=== PATIENT | female | born 1970 | race African-American/Black ===

== ENCOUNTER 2021-06-12 18:37 | Inpatient (IN) | payer OTHER, SELFPAY ==
[2021-06-12] VITALS (7 sets, daily range): BP systolic 103–133; BP diastolic 71–75; PULSE 93–112; RESP 15–32; TEMP 36.3–37.9; O2SAT 83–99
--- NOTE | ~2021-06-12 | XR_ITS ---
EXAMINATION: XR chest 1V portable DATE: 06/18/2021 06:04 INDICATION: COVID-19 pneumonia. TECHNIQUE: A single frontal view of the chest was obtained. COMPARISON: Chest single view 06/14/2021, chest CT 06/12/2021 FINDINGS: The patient is rotated to her left. There are airspace opacities throughout the lungs bilat erally. No pleural effusion or pneumothorax. Cardiomegaly is noted. IMPRESSION: 1. Stable diffuse lung disease, consistent with pneumonia. 2. Cardiomegaly. Reviewed, dictated and finalized at location A.
--- NOTE | ~2021-06-12 | XR_ITS ---
EXAMINATION: XR chest 1V portable DATE: 06/12/2021 19:04 INDICATION: Dizziness and weakness. TECHNIQUE: A single frontal view of the chest was obtained. COMPARISON: None. FINDINGS: There are airspace opacities in all lung zones bilaterally with relative sparing of the emeka g apices. No pleural effusion or pneumothorax. Cardiomegaly is noted. IMPRESSION: 1. Diffuse lung disease, consistent with pulmonary edema versus pneumonia. 2. Cardiomegaly. Reviewed, dictated and finalized at location A.
--- NOTE | ~2021-06-12 | XR_ITS ---
EXAMINATION: XR chest 1V portable DATE: 06/14/2021 07:38 INDICATION: COVID positive. Shortness of breath and hypoxia. TECHNIQUE: frontal view of the chest was obtained. COMPARISON: Chest radiograph dated 06/12/2021 FINDINGS: Previously more dense and localized scattered patchy airspace opacities now appear more diffuse and g roundglass like throughout the bilateral mid and lower lung zones. No pleural effusion or pneumothora x. Cardiomegaly. IMPRESSION: 1. Diffuse opacities throughout the bilateral mid and lower lung zones consistent with COVID pneumoni a. 2. Cardiomegaly. Reviewed, dictated and finalized at location A. IMPRESSION: 1. Diffuse opacities throughout the bilateral mid and lower lung zones consiste nt with COVID pneumonia. 2. Cardiomegaly.
--- NOTE | ~2021-06-12 | CT_ITS ---
EXAMINATION: CTA chest PE protocol DATE: 06/12/2021 22:04 INDICATION: Shortness of breath. COVID-19 pneumonia. TECHNIQUE: Computed tomography angiography (CTA) of the chest was performed with 100 mL Omnipaque-350 intravenous contrast timed to evaluate the pulmonary arteries. Coronal maximum intensity projection 3D-reconstructions were created by the technologist. Automated exposure control and iterative reconst ruction technique were employed. The dose-length product was 875.16 mGy-cm. COMPARISON: Chest single view 06/12/2021 FINDINGS: There are patchy groundglass opacities and crazy paving in all lobes. No pleural effusion. Cardiomegaly is noted. No pericardial effusion. There is no pulmonary embolus. There is mild mediasti nal lymphadenopathy, likely reactive. There is mild thoracic spondylosis. There is mild chronic anter ior wedging of T6 vertebral body. IMPRESSION: 1. No pulmonary embolus. 2. Diffuse lung disease, consistent with COVID-19 pneumonia. Reviewed, dictated and finalized at location A.
--- NOTE | 2021-06-12 18:42 | ECG_ITS ---
Measurements Intervals [place] Rate: 103 P: 51 MD: 119 QRS: 3 QRSD: 80 T: 32 QT: 311 QTc: 409 Interpretive Statements SINUS TACHYCARDIA WITH SHORT MD INTERVAL DELAYED PRECORDIAL R/S TRANSITION BASELINE ARTIFACT- I, II, AVR, AVL BORDERLINE ECG Electronically Signed On 06-13-2021 7:00:31 CDT by Shahzad Garcia D.O.
--- NOTE | 2021-06-12 19:14 | ED.SOB ---
HPI - SOB/Dyspnea General Chief Complaint: Shortness of Breath/Dyspnea Stated Complaint: weakness/ dizziness covid + Time Seen by Provider: 06/12/21 19:04 Source: RN notes reviewed History of Present Illness HPI Narrative: Patient presents to emergency department from home via EMS for shortness of breath. Patient states she began to feel ill approximately 1 week ago states that she is had a cough this been nonproductive with progressive feelings of shortness of breath when EMS arrived and the patient was noted to have an O2 saturation in the 70s on room air patient states she has not received her Covid vaccination she denies any chest pain abdominal pain nausea vomiting or any other symptoms Related Data Home Medications Medication Instructions Recorded Confirmed hydrochlorothiazide 25 mg PO DAILY 06/12/21 06/12/21 losartan 50 mg PO DAILY 06/12/21 06/12/21 Allergies Allergy/AdvReac Type Severity Reaction Status Date / Time No Known Allergies Allergy Mild Verified 06/12/21 18:40 Review of Systems Review of Systems: Gen.: Denies fevers or chills ENT: Denies congestion Respiratory: See HPI CV: Denies chest pain or palpitations GI: Denies abdominal pain nausea, emesis or diarrhea Musculoskeletal: Denies back pain or muscle pain Neuro: Denies numbness, tingling, weakness or focal weakness Skin: Denies rash Except as documented, all other systems reviewed and negative [facility] Past Medical History Medical History (Updated 06/12/21 @ 23:09 by Valdemar Ramos DO) Patient denies significant medical history Social History Social History (Updated 06/12/21 @ 19:16 by Valdemar Ramos DO) Smoking status: Never smoker Exam Narrative: APPEARANCE: No acute distress, nontoxic, resting in bed EYES: EOMI HEENT: Normocephalic, atraumatic, OMM RESPIRATORY: No respiratory distress Clear to auscultation bilaterally with no rhonchi wheezing or rales. CARDIOVASCULAR: Regular rate and rhythm without murmurs rubs or gallops. ABDOMINAL: Soft, nontender, nondistended, no rebound or guarding MUSCULOSKELETAl: Moves all extremities. No clubbing, cyanosis or edema. NEURO: Awake and alert. Following commands, speech normal, no focal deficits SKIN:: Warm, dry. No rashes lesions or abrasions PSYCHIATRIC: Normal affect/mood, Course Course Emergency Course: Called discussed with Dr. Bar presentation work-up agrees with admission at this time Discussed with patient and family results of workup and diagnosis. Discussed need for admission. Patient and family understand and agree to current treatment plan Vital Signs Vital signs: Vital Signs Pulse Rate 110 H 06/12/21 18:34 Respiratory Rate 24 H 06/12/21 18:34 Pulse Oximetry 83 L 06/12/21 18:34 Temperature 97.7 F 06/12/21 21:50 Pulse Rate 101 H 06/12/21 21:50 Respiratory Rate 26 H 06/12/21 21:50 Blood Pressure 133/74 06/12/21 21:50 Pulse Oximetry 97 06/12/21 21:50 MDM - SOB/Dyspnea Lab Data Result diagrams: 06/12/21 19:56 06/12/21 19:55 Labs: Lab Results 06/12/21 06/12/21 06/12/21 Range/Units 19:55 19:55 19:56 WBC 9.8 (4.5-10.0) K/mm3 RBC 4.70 (4.2-5.4) M/mm3 Hgb 11.6 L (12.0-15.0) g/dL Hct 37.1 (37.0-47.0) % MCV 78.9 L (80-100) fl MCH 24.7 L (26-34) pg MCHC 31.3 L (32-36) g/dl RDW 16.9 H (11.5-14.5) % Plt Count 357 (150-375) k/mm3 MPV 10.0 (7.4-10.4) fl Immature Gran % (Auto) 0.5 (0-0.5) % Neut % (Auto) 67.2 (45.5-73.1) % Lymph % (Auto) 27.2 (18.3-44.2) % [place] % (Auto) 4.9 (2.6-8.5) % Eos % (Auto) 0.0 (0-4.4) % Baso % (Auto) 0.2 (0.2-1.2) % Lymph # (Auto) 2.65 (0.9-3.2) K/mm3 [place] # (Auto) 0.5 (0.1-0.6) K/mm3 Eos # (Auto) 0.0 (0-0.3) K/mm3 Baso # (Auto) 0.0 (0.0-0.1) K/mm3 Abs Immat Gran (auto) 0.05 H (0.00-0.031) K/mm3 Absolute Neuts (auto) 6.6 (1.3-6.7) K/mm3 Absolute Nucleated RBC 0.0 (0.0-0.
[2021-06-12] MEDS: ALBUTEROL SULFATE (*SP) AEROSOL 1 PUFF 2 PUFF INHALATION (19:53)
[2021-06-12 20:20] LABS: Basophils Percent Auto 0.2 % (0.2-1.2); Hematocrit 37.1 % (37.0-47.0); Hemoglobin 11.6 g/dL (12.0-15.0); Immature Granulocyte Absolute 0.05 K/mm3 (0.00-0.031); Immature Granulocyte Percent A 0.5 % (0-0.5); Lymphocytes Absolute Auto 2.65 K/mm3 (0.9-3.2); Lymphocytes Percent Auto 27.2 % (18.3-44.2); Mean Corpuscular HGB Conc 31.3 g/dl (32-36); Mean Corpuscular Hemoglobin 24.7 pg (26-34); Mean Corpuscular Volume 78.9 fl (80-100); Monocytes Absolute Auto 0.5 K/mm3 (0.1-0.6); Monocytes Percent Auto 4.9 % (2.6-8.5); Neutrophils Absolute Auto 6.6 K/mm3 (1.3-6.7); Neutrophils Percent Auto 67.2 % (45.5-73.1); Platelet Count Result 357 k/mm3 (150-375); Red Cell Distribution Width 16.9 % (11.5-14.5); White Blood Count 9.8 K/mm3 (4.5-10.0)
[2021-06-12 20:28] LABS: EDCOVIDSCREEN Positive (Negative)
[2021-06-12 20:29] LABS: Lactic Acid Reflex 0.9 mmol/L (0.7-2.1)
[2021-06-12 20:32] LABS: Partial Thromboplastin Time 32.1 SECONDS (22.3-36.8); Prothrombin Time 12.8 Seconds (11.1-14.7)
[2021-06-12 20:35] LABS: D Dimer 1.65 ug/mL (<0.48)
[2021-06-12 20:36] LABS: NT Pro B Type Natriuretic Pept 119 pg/mL (5-100)
[2021-06-12 21:27] LABS: Anion Gap 7 mmol/L (8-16); Blood Urea Nitrogen 15 mg/dL (7-17); Calcium 8.4 mg/dL (8.4-10.2); Carbon Dioxide 28 mmol/L (22-30); Chloride 98 mmol/L (98-107); Estimated CRCL calculation 61 ml/min; Estimated Glomerular Filt Rate 57; Glucose 111 mg/dL (65-110); Potassium 4.2 mmol/L (3.4-5.0); Sodium 133 mmol/L (137-145)
[2021-06-12 21:40] LABS: Alanine Aminotransferase 39 U/L (4-35); Albumin Level 3.6 g/dL (3.5-5.1); Alkaline Phosphatase 88 U/L (38-126); Aspartate Amino Transferase 89 U/L (14-36); Bilirubin,Total 0.3 mg/dL (0.2-1.3); Lactate Dehydrogenase 1474 U/L (313-618)
[2021-06-12] MEDS: SODIUM CHLORIDE 0.9% IV 1,000 ML 999 ML IV CONT (21:46)
[2021-06-12 22:08] LABS: CRP 15.8 mg/dL (<1.0)
[2021-06-13] VITALS (10 sets, daily range): BP systolic 135–158; BP diastolic 83–88; PULSE 92–98; RESP 18–22; TEMP 35.6–37.4; O2SAT 86–94; BMI 47.5
--- NOTE | 2021-06-13 00:30 | PC.NURSE ---
This patient, Tricia Trent, was admitted to [facility] Room 325-01. Patient/family oriented to hospital policies and general routines including ID bracelet, bed and alarms, visiting hours, pain management, procedures, bathroom and other care routines, personal items, smoking policy, room service/diet, and visiting hours. Information on how to activate the Rapid Response Team has been discussed. Patient/Family are encouraged to report perceived risks to care and to ask questions if they do not understand what they are told or what they should do.
--- NOTE | 2021-06-13 01:20 | PC.NURSE ---
Initial assessment and skin check completed, no open areas noted. She is alert and orientated, resp are even and nonlabored at this time, pt does report shortness of breath with activity, educated on the importance of using call light for ambulation assistance, call light is within reach.
--- NOTE | 2021-06-13 02:00 | PM.IMHP ---
H&P: HPI History of Present Illness Date/Time: 06/13/21 02:00 Chief Complaint: Shortness of breath Narrative: This is a 50-year-old female with past medical history significant for hypertension, morbid obesity. Patient presented to the emergency room after she was diagnosed with COVID roughly a week ago for worsening shortness of breath, productive cough, generalized malaise, muscle aches and pain, fevers, rigors, chills ,poor appetite, generalized weakness. She denies any nausea, vomiting, abdominal pain, diarrhea or leg swelling ,PND,nor orthopnea. Preliminary workup was significant for chest x-ray with diffuse bilateral pulmonary infiltrates CT of the lungs significant for diffuse infiltrates as well. Review of Systems Review of Systems: Generalized malaise body aches and pains shortness of breath cough productive of sputum poor appetite Constitutional: Constitutional: Reports chills, Reports fatigue, Reports fever(s), Reports lethargy, Reports malaise, Reports poor appetite and Reports weakness Eyes: Eyes: Denies change in vision ENT: Denies dysphagia, Denies nasal congestion, Denies nasal discharge and Denies nasal obstruction Cardiovascular: Cardiovascular: Denies irregular heart rhythm, Denies lightheadedness, Denies radiating jaw, neck or arm pain and Denies palpitations Respiratory: Respiratory: Reports change in phlegm color, Reports cough, Reports excessive phlegm production and Reports dyspnea Gastrointestinal: Gastrointestinal: Denies dyspepsia, Denies diarrhea, Denies nausea and Denies vomiting Genitourinary: Genitourinary: Reports no additional female genitourinary complaints Musculoskeletal: Musculoskeletal: Reports myalgias Integumentary/Breasts: Skin/Breast: Denies rash Neurologic: Reports system reviewed and no additional complaints, except as documented Psychiatric: Psychiatric: Reports no additional psychiatric complaints Endocrine: Endocrine: Reports no additional endocrine complaints Hematologic/Lymphatic: Hematologic/Lymphatic: Reports no additional hematologic/lymphatic complaints Allergic/Immunologic: Allergic/Immunologic: Reports no additional allergic/immunologic complaints [facility] Past Medical History Medical History (Updated 06/13/21 @ 02:32 by Jonathon Lainez MD) Patient denies significant medical history Family History Family History (Updated 06/13/21 @ 00:45 by Soledad Burns RN) Father Hypertension Social History Social History (Updated 06/12/21 @ 19:16 by NICKOLAS Marley Smoking status: Never smoker Alcohol intake: never Substance use: never Substance use type: does not use Spiritual care concerns: No Meds Home Medications and Allergies Home Medications Medication Instructions Recorded Confirmed Type hydrochlorothiazide 25 mg PO DAILY 06/12/21 06/12/21 History losartan 50 mg PO DAILY 06/12/21 06/12/21 History Allergies Allergy/AdvReac Type Severity Reaction Status Date / Time No Known Allergies Allergy Mild Verified 06/12/21 18:40 Vital Signs Vital Signs - 24 hr 06/12/21 18:34 06/12/21 18:40 06/12/21 18:53 Temperature 97.4 F L Pulse Rate 110 H 112 H 105 H Respiratory Rate 24 H 32 H Blood Pressure 103/75 Pulse Oximetry 83 L 99 06/12/21 19:54 06/12/21 21:50 06/12/21 23:44 Temperature 97.7 F 97.9 F Pulse Rate 105 H 101 H 93 Respiratory Rate 15 26 H 25 H Blood Pressure 133/74 130/71 Pulse Oximetry 97 97 06/12/21 23:45 Temperature 100.3 F H Pulse Rate 96 Respiratory Rate 22 H Blood Pressure 129/72 Pulse Oximetry 95 Exam Narrative: Sitting in [facility] Const: General: cooperative, comfortable, no acute distress, well developed, alert, awake and other (Well-appearing) Nutritional Appearance: obese morbidly obese Orientation/consciousness: patient oriented x3 HENMT: Head: normal to inspection, normocephalic and atraumatic Ears: hearing grossly normal bilaterally General nose exam: Normal external
[2021-06-13 02:55] LABS: Basophils Percent Auto 0.1 % (0.2-1.2); Hematocrit 37.5 % (37.0-47.0); Hemoglobin 11.9 g/dL (12.0-15.0); Immature Granulocyte Absolute 0.04 K/mm3 (0.00-0.031); Immature Granulocyte Percent A 0.4 % (0-0.5); Lymphocytes Absolute Auto 1.36 K/mm3 (0.9-3.2); Lymphocytes Percent Auto 14.9 % (18.3-44.2); Mean Corpuscular HGB Conc 31.7 g/dl (32-36); Mean Corpuscular Hemoglobin 25.2 pg (26-34); Mean Corpuscular Volume 79.4 fl (80-100); Mean Platelet Volume 9.7 fl (7.4-10.4); Monocytes Absolute Auto 0.3 K/mm3 (0.1-0.6); Monocytes Percent Auto 2.8 % (2.6-8.5); Neutrophils Absolute Auto 7.5 K/mm3 (1.3-6.7); Neutrophils Percent Auto 81.8 % (45.5-73.1); Platelet Count Result 351 k/mm3 (150-375); Red Blood Count 4.72 M/mm3 (4.2-5.4); Red Cell Distribution Width 16.9 % (11.5-14.5); White Blood Count 9.1 K/mm3 (4.5-10.0)
[2021-06-13 03:08] LABS: INR 0.9
[2021-06-13 03:13] LABS: Alanine Aminotransferase 40 U/L (4-35); Albumin Level 3.7 g/dL (3.5-5.1); Alkaline Phosphatase 83 U/L (38-126); Anion Gap 9 mmol/L (8-16); Aspartate Amino Transferase 85 U/L (14-36); Bilirubin,Total 0.2 mg/dL (0.2-1.3); Blood Urea Nitrogen 16 mg/dL (7-17); Calcium 8.6 mg/dL (8.4-10.2); Carbon Dioxide 25 mmol/L (22-30); Chloride 102 mmol/L (98-107); Estimated CRCL calculation 64 ml/min; Estimated Glomerular Filt Rate 57; Glucose 182 mg/dL (65-110); Potassium 4.3 mmol/L (3.4-5.0); Sodium 136 mmol/L (137-145)
[2021-06-13] MEDS: REMDESIVIR 200 MG/NS 250 ML 200 MG/250 ML BAG 250 MG IVPB (06:00)
[2021-06-13] MEDS: DEXAMETHASONE SOD PHOS INJ 4 MG/ML VIAL 6 MG IV PUSH (09:44)
[2021-06-13] MEDS: ENOXAPARIN 40 MG/0.4 ML SYRINGE SUB-Q (09:44)
[2021-06-13] MEDS: LOSARTAN POTASSIUM 50 MG TABLET PO (11:30)
--- NOTE | 2021-06-13 12:49 | PM.IMPN ---
Progress Note: A&P Assessment and Plan (1) Pneumonia due to 2019 novel coronavirus: Code(s): U07.1 - COVID-19; J12.82 - Pneumonia due to coronavirus disease 2019 Status: Acute Assessment and Plan: Patient began having symptoms on June 05, which started out as a cough and congestion. Then developed symptoms of loss of taste and smell. In the last few days she has been so fatigued and shortness of breath with exertion she decided to come into the emergency room for further evaluation. Diagnosed with COVID 19 on arrival with positive rapid swab. Patient was found to be hypoxic by EMS and placed on oxygen. She was started on IV dexamethasone and Remdesivir (#1) Patient has elevated LFTs, LDH, CRP due to COVID. Will continue trending. Patient had elevated D-dimer and a CTA of her chest preliminary report shows no PE, extensive ground-glass opacities seen throughout both lungs concerning for infectious process, typical of COVID 19. Currently she is resting comfortably on 4 L of oxygen. Continue with symptomatic care P.r.n. albuterol, Robitussin, Throat lozenge Lovenox for DVT prophylaxis Consider Convolesant Plasma if patients respiratory status deteriorates vs Baricitinib. Continue monitoring respiratory status. (2) Acute respiratory failure with hypoxia: Code(s): J96.01 - Acute respiratory failure with hypoxia Status: Acute Assessment and Plan: See above (3) Hypertension: Code(s): I10 - Essential (primary) hypertension Status: Acute Assessment and Plan: Patient's blood pressure is stable at 135/88. Continue lisinopril. Will hold hydrochlorothiazide due to lighteadedness and prevent dehydration. Continue to monitor (4) Elevated glucose: Code(s): R73.09 - Other abnormal glucose Status: Acute Assessment and Plan: Patient denies any history of diabetes. Her glucose on arrival was 182. Will check a hemoglobin A1c in the morning. Time Spent With Patient Time with patient: 25 - 35 minutes Subjective Date/time seen: 06/13/21 12:49 Interval history: Date of Service 06/13/21: The patient reports feeling much better today. She still on 4 L via nasal cannula. She denies any shortness of breath at rest. Still having shortness of breath with exertion. Cough has improved. She has more energy than when she came in. Denies any fevers, chills, nausea, vomiting, abdominal pain, leg swelling, calf pain, lightheadedness, dizziness or any other symptoms at this time. Review of Systems Review of Systems: All systems reviewed & are unremarkable except as noted in HPI and below Exam Narrative: General: 50-year-old woman sitting up on the side of the bed watching TV. Appears comfortable on 4 L via NC. In no acute distress. Skin: No jaundice or cyanosis. Good skin turgor. Neck: Full range of motion. Supple. Respiratory: Not taking deep breaths, lungs are otherwise clear to auscultation, no wheezing, rales or rhonchi. No bony chest wall tenderness. Cardiovascular: The heart has a regular rate and rhythm without murmur. Lower extremities: No lower extremity edema. Distal pulses are easily palpated. No calf tenderness to palpation. Gastrointestinal: The abdomen is soft, nontender and nondistended with active bowel sounds. Psychiatric: Lucid and oriented. Memory intact. Neurologic: No focal deficits. Speech is clear. No facial drooping. Objective Data Vital Signs Vital Signs: Vital Signs - 24 hr 06/12/21 18:34 06/12/21 18:40 06/12/21 18:53 Temperature 97.4 F L Pulse Rate 110 H 112 H 105 H Respiratory Rate 24 H 32 H Blood Pressure 103/75 Pulse Oximetry 83 L 99 06/12/21 19:54 06/12/21 21:50 06/12/21 23:44 Temperature 97.7 F 97.9 F Pulse Rate 105 H 101 H 93 Respiratory Rate 15 26 H 25 H Blood Pressure 133/74 130/71 Pulse Oximetry 97 97 06/12/21 23:45 06/13/21 03:
[2021-06-13] MEDS: SALINE 0.65% NAS SOLN 44 ML BTL 1 SPRAY NASAL (21:23)
[2021-06-14] VITALS (29 sets, daily range): BP systolic 112–151; BP diastolic 44–101; PULSE 78–102; RESP 14–55; TEMP 36.1–38; O2SAT 81–99
[2021-06-14] MEDS: guaiFENesin/DEXTROMETHORPHAN 10 ML UDC 5 ML PO (00:43)
[2021-06-14] MEDS: ALBUTEROL SULFATE (*SP) INHALER 2 PUFF INHALATION (00:47)
[2021-06-14] MEDS: FUROSEMIDE INJ 40 MG/4 ML VIAL IV PUSH (01:38)
--- NOTE | 2021-06-14 02:24 | PC.NURSE ---
Patient found to have O2 saturations in lower 80's on 5L NC. this nurse increased her to 6L without improvement switched to 8L High flow patient still in mid 80s. Increasing high flow to 12L Dr Lainez notified and up to assess patient Lasix IVP ordered and 15L non-rebreather started and High flow increased to 15L. Patient placed on continuous pulse ox. Saturations currently 92% will continue to monitor. Encouraged patient to lay prone when possible educated patient on incentive spirometer and cough and deep breathing.
--- NOTE | 2021-06-14 05:11 | PC.NURSE ---
Patient saturations dropping to mid 80's on 15L HF and 15L non breather patient respirations in 40's, Dr Lainez notified Komal pa Respiratory Therapist notified
[2021-06-14] MEDS: IPRATROPIUM BR 0.02% INH SOLN 0.5 MG/2.5 ML VIAL INHALATION (05:31)
[2021-06-14] MEDS: ALBUTEROL SULFATE NEB 2.5 MG/3 ML INH (05:31)
--- NOTE | 2021-06-14 05:57 | PC.NURSE ---
Atrovent treatment completed patient saturations mid/lower 80's tachypea 30-40s Dr Lainez notified and IMU bed requested
--- NOTE | 2021-06-14 06:07 | P.PNCROSS_ITS ---
Event Note Event Note Event Note: I was called to patient's bedside due to patient's low saturation in spite of being on 12 L of oxygen. At the time of my visit patient looked comfortable laying in bed awake and alert asking when she could go home. Patient was given nebulizer treatment oxygen was increased to 15 L plus non- rebreather I got call from the nurse that patient was still having respiratory rate in the 30s and a pulse ox in the 80 I requested another nebulizer treatment by RT with no improvement. Patient is going to be given a trial of continuous BiPAP and transfer to IMU.
[2021-06-14 07:48] LABS: Alveolar/Arterial O2 Gradient 602.7 mmHg; Base Excess ABG 1.3 mEq/l (+/-2.0); Carboxyhemoglobin 0.3 % THb (0-2.0); Fractional Inspired Oxygen 100 %; Methemoglobin ABG 0.5 %THb (0-1.5); Oxygen Content ABG 16.7 %vol (16.0-22.0); Oxyhemoglobin 91.8 % THb (90.0-100.0); PCO2 ABG 41.6 mmHg (35.0-45.0); PO2 ABG 68.7 mmHg (80.0-100.0); PO2 FiO2 Ratio Arterial Blood 0.69 %; Reduced Hemoglobin 7.4 %THb (0-5.0); Total Hemoglobin 12.9 g/dL (12.0-18.0); pH ABG 7.414 (7.350-7.450)
[2021-06-14 07:49] LABS: Device NON-INVASIVE VENT; Modified Allen's Test Pass; Non-Invasive Expiratory Pressure 8 CMH2O; Non-Invasive Inspiratory Pressure 12 CMH2O; Non-Invasive Vent Rate 14 /MIN; Site Drawn RIGHT RADIAL
--- NOTE | 2021-06-14 08:05 | PC.NURSE ---
This patient, Tricia Trent, was received from [facility] on 06/14/21 at 0640. BIPAP initiated as ordered. Patient/family oriented to unit policies and routines
[2021-06-14] MEDS: ENOXAPARIN 40 MG/0.4 ML SYRINGE SUB-Q (08:17)
[2021-06-14] MEDS: DEXAMETHASONE SOD PHOS INJ 4 MG/ML VIAL 6 MG IV PUSH (08:17)
[2021-06-14] MEDS: LOSARTAN POTASSIUM 50 MG TABLET PO (08:17)
--- NOTE | 2021-06-14 08:25 | PC.NURSE ---
0655-Pt noted to be tachypneic (RR 50-60's) with shallow respirations on the BIPAP. FIO2 increased from 95%-100% upon arrival to the unit. SPO2 ranging 88-95%. supervisor stripping, Lizeth notified of Pt's condition. Dr. Lainez also notified. to come to bedside to assess Pt. Will continue to monitor Pt closely.
[2021-06-14] MEDS: ALBUTEROL SULFATE (*SP) INHALER 1 PUFF (08:48)
[2021-06-14 09:53] LABS: Basophils Percent Auto 0.2 % (0.2-1.2); Hematocrit 37.5 % (37.0-47.0); Hemoglobin 11.8 g/dL (12.0-15.0); Immature Granulocyte Percent A 0.7 % (0-0.5); Lymphocytes Absolute Auto 2.21 K/mm3 (0.9-3.2); Lymphocytes Percent Auto 16.5 % (18.3-44.2); Mean Corpuscular HGB Conc 31.5 g/dl (32-36); Mean Corpuscular Hemoglobin 24.6 pg (26-34); Mean Corpuscular Volume 78.3 fl (80-100); Mean Platelet Volume 9.6 fl (7.4-10.4); Monocytes Absolute Auto 0.5 K/mm3 (0.1-0.6); Monocytes Percent Auto 3.7 % (2.6-8.5); Neutrophils Absolute Auto 10.6 K/mm3 (1.3-6.7); Neutrophils Percent Auto 78.9 % (45.5-73.1); Platelet Count Result 441 k/mm3 (150-375); Red Blood Count 4.79 M/mm3 (4.2-5.4); Red Cell Distribution Width 16.4 % (11.5-14.5); White Blood Count 13.4 K/mm3 (4.5-10.0)
[2021-06-14 10:03] LABS: Prothrombin Time 12.7 Seconds (11.1-14.7)
[2021-06-14 10:10] LABS: Hemoglobin A1C 7.8 % (<5.7)
--- NOTE | 2021-06-14 10:10 | PM.IMPN ---
Progress Note: A&P Assessment and Plan (1) Pneumonia due to 2019 novel coronavirus: Code(s): U07.1 - COVID-19; J12.82 - Pneumonia due to coronavirus disease 2019 Status: Acute Assessment and Plan: Patient began having symptoms on June 05, which started out as a cough and congestion. Then developed symptoms of loss of taste and smell. In the last few days she has been so fatigued and shortness of breath with exertion she decided to come into the emergency room for further evaluation. UNVACCINATED. Diagnosed with COVID 19 on arrival with positive rapid swab. Patient was found to be hypoxic by EMS and placed on oxygen. Patient had elevated D-dimer and a CTA of her chest preliminary report shows no PE, extensive ground-glass opacities seen throughout both lungs concerning for infectious process, typical of COVID 19. 06/14/21: ABG normal pH, pCO2, HCO3 and O2 at 94% on BiPAP. CXR showed diffuse opacities throughout the bilateral mid and lower lung zones consistent with COVID pneumonia. Cardiomegaly. Currently she anxious, tachypneic on 100% FiO2 BiPAP, with saturations at 92%. Called the patients son, Ish, who she wanted me to call about everything (#[phone]). At this time, the patient and son understand how critical she is this point. If she gets any worse she may need to be placed on a ventilator. After much discussion with the patient her son their agreement that she will remain a full code and be intubated if necessary. Continue on IV dexamethasone and Remdesivir (#3) and PO Baricitinib (#1) and order Convolesant Plasma x1 Patient has become elevated slightly more overnight elevated LFTs, LDH, CRP due to COVID. Will continue trending. Continue with symptomatic care. P.r.n. albuterol inhaler, Robitussin, Throat lozenge Lovenox for DVT prophylaxis Continue monitoring respiratory status. (2) Acute respiratory failure with hypoxia: Code(s): J96.01 - Acute respiratory failure with hypoxia Status: Acute Assessment and Plan: See above (3) Hypertension: Code(s): I10 - Essential (primary) hypertension Status: Acute Assessment and Plan: Patient's blood pressure is stable at 112/44. Will hold hydrochlorothiazide and Lisinopril at this time. Continue to monitor (4) Elevated glucose: Code(s): R73.09 - Other abnormal glucose Status: Acute Assessment and Plan: Patient denies any history of diabetes. Her glucose on arrival was 182. Hemoglobin A1c is 7.8%, New onset DM. Will start glucose checks Q6hrs since she is on continuous BiPAP at this time and Sliding Scale Insulin. Hypglycemic protocol in place. Continue monitoring. Will need medications for new onset DM upon discharge. Time Spent With Patient Time with patient: 25 - 35 minutes Subjective Date/time seen: 06/14/21 10:10 Interval history: Date of Service 06/14/21: The patient reports feeling well today. She denies any chest pain, cough. She still wants to go home at this time. She is unsure why we are keeping her here even though she has been moved to the IMU in is on FiO2 100% BiPAP. Denies any lightheadedness, dizziness, fatigue, leg swelling, calf pain, nausea, vomiting, or any other symptoms at this time. Review of Systems Review of Systems: All systems reviewed & are unremarkable except as noted in HPI and below Exam Narrative: General: 50-year-old woman sitting in bed on BiPAP, tachypneic. Appears slightly anxious on BiPAP 100% FiO2 with an oxygen saturation at 92%. In no acute distress. Skin: No jaundice or cyanosis. Good skin turgor. Neck: Full range of motion. Supple. Respiratory: Tachypneic. Not taking deep breaths, lungs are otherwise clear to auscultation, no wheezing, rales or rhonchi. No bony chest wall tenderness. Cardiovascular: The heart has a regular rate and rhythm without murmur. Lower extremities:
[2021-06-14 10:11] LABS: Alanine Aminotransferase 38 U/L (4-35); Albumin Level 3.5 g/dL (3.5-5.1); Alkaline Phosphatase 86 U/L (38-126); Anion Gap 9 mmol/L (8-16); Aspartate Amino Transferase 79 U/L (14-36); Bilirubin,Total 0.4 mg/dL (0.2-1.3); Blood Urea Nitrogen 21 mg/dL (7-17); Calcium 8.7 mg/dL (8.4-10.2); Carbon Dioxide 27 mmol/L (22-30); Chloride 101 mmol/L (98-107); Estimated CRCL calculation 59 ml/min; Estimated Glomerular Filt Rate 52; Glucose 137 mg/dL (65-110); Sodium 137 mmol/L (137-145)
[2021-06-14 10:23] LABS: Lactate Dehydrogenase 2120 U/L (313-618)
[2021-06-14] MEDS: REMDESIVIR 100 MG/NS 250 ML 100 MG/250 ML BAG 250 MG IVPB (11:20)
[2021-06-14] MEDS: BARICITINIB 2 MG TABLET BY MOUTH (11:21)
[2021-06-14] MEDS: ALBUTEROL SULFATE (*SP) AEROSOL 1 PUFF 2 PUFF INHALATION ×3 (11:52→20:46)
[2021-06-14 17:38] LABS: Glucose Point of Care 126 mg/dl (65-105)
[2021-06-14 17:38] LABS: Glucose Point of Care 153 mg/dl (65-105)
[2021-06-14] MEDS: SODIUM CHLORIDE 0.9% IV 250 ML 30 ML IV CONT (18:44)
[2021-06-14] MEDS: SALINE 0.65% NAS SOLN 44 ML BTL 1 SPRAY NASAL (21:50)
[2021-06-14] MEDS: SODIUM CHLORIDE NASAL GEL 14.1 GM 1 APPLIC NASAL (21:59)
[2021-06-14 23:23] LABS: Glucose Point of Care 77 mg/dl (65-105)
[2021-06-15] VITALS (21 sets, daily range): BP systolic 118–152; BP diastolic 67–95; PULSE 76–110; RESP 20–24; TEMP 36.4–36.9; O2SAT 90–95
--- NOTE | 2021-06-15 05:15 | PC.NURSE ---
0400 patient anxious and requests to take Bi-PAP off due to being uncomfortable. Discussed patient concern with respiratory and decided to place patient on Airvo 50L/90% Dr. Lainez notified.
[2021-06-15 06:04] LABS: Basophils Percent Auto 0.2 % (0.2-1.2); Eosinophils Percent Auto 0.1 % (0-4.4); Hematocrit 37.1 % (37.0-47.0); Hemoglobin 11.7 g/dL (12.0-15.0); Immature Granulocyte Absolute 0.11 K/mm3 (0.00-0.031); Immature Granulocyte Percent A 0.9 % (0-0.5); Lymphocytes Absolute Auto 2.81 K/mm3 (0.9-3.2); Lymphocytes Percent Auto 22.8 % (18.3-44.2); Mean Corpuscular HGB Conc 31.5 g/dl (32-36); Mean Corpuscular Hemoglobin 25.3 pg (26-34); Mean Corpuscular Volume 80.3 fl (80-100); Monocytes Absolute Auto 0.5 K/mm3 (0.1-0.6); Monocytes Percent Auto 4.4 % (2.6-8.5); Neutrophils Absolute Auto 8.8 K/mm3 (1.3-6.7); Neutrophils Percent Auto 71.6 % (45.5-73.1); Platelet Count Result 405 k/mm3 (150-375); Red Blood Count 4.62 M/mm3 (4.2-5.4); Red Cell Distribution Width 16.8 % (11.5-14.5); White Blood Count 12.3 K/mm3 (4.5-10.0)
[2021-06-15 06:19] LABS: Prothrombin Time 12.7 Seconds (11.1-14.7)
[2021-06-15 06:46] LABS: Alanine Aminotransferase 35 U/L (4-35); Albumin Level 3.5 g/dL (3.5-5.1); Alkaline Phosphatase 83 U/L (38-126); Anion Gap 8 mmol/L (8-16); Aspartate Amino Transferase 72 U/L (14-36); Bilirubin,Total 0.4 mg/dL (0.2-1.3); Blood Urea Nitrogen 28 mg/dL (7-17); Calcium 8.9 mg/dL (8.4-10.2); Carbon Dioxide 30 mmol/L (22-30); Chloride 101 mmol/L (98-107); Estimated CRCL calculation 59 ml/min; Estimated Glomerular Filt Rate 52; Glucose 113 mg/dL (65-110); Potassium 3.8 mmol/L (3.4-5.0); Sodium 139 mmol/L (137-145)
[2021-06-15 07:23] LABS: Atypical Lymphocytes Present; Platelet Estimate Increased (Adequate)
[2021-06-15] MEDS: ALBUTEROL SULFATE (*SP) AEROSOL 1 PUFF 2 PUFF INHALATION ×4 (08:32→19:55)
[2021-06-15] MEDS: BARICITINIB 2 MG TABLET BY MOUTH (08:37)
[2021-06-15] MEDS: ENOXAPARIN 40 MG/0.4 ML SYRINGE SUB-Q (08:37)
[2021-06-15] MEDS: DEXAMETHASONE SOD PHOS INJ 4 MG/ML VIAL 6 MG IV PUSH (08:37)
[2021-06-15 08:50] LABS: Glucose Point of Care 104 mg/dl (65-105)
[2021-06-15] MEDS: REMDESIVIR 100 MG/NS 250 ML 100 MG/250 ML BAG 250 MG IVPB (10:32)
[2021-06-15 11:37] LABS: Lactate Dehydrogenase 2120 U/L (313-618)
[2021-06-15 12:19] LABS: Glucose Point of Care 124 mg/dl (65-105)
[2021-06-15 16:59] LABS: Glucose Point of Care 120 mg/dl (65-105)
--- NOTE | 2021-06-15 17:12 | PM.IMPN ---
Progress Note: A&P Assessment and Plan (1) Pneumonia due to 2019 novel coronavirus: Code(s): U07.1 - COVID-19; J12.82 - Pneumonia due to coronavirus disease 2019 Status: Acute Assessment and Plan: Patient began having symptoms on June 05, which started out as a cough and congestion. Then developed symptoms of loss of taste and smell. In the last few days she has been so fatigued and shortness of breath with exertion she decided to come into the emergency room for further evaluation. UNVACCINATED. Diagnosed with COVID 19 on arrival with positive rapid swab. Patient was found to be hypoxic by EMS and placed on oxygen. Patient had elevated D-dimer and a CTA of her chest preliminary report shows no PE, extensive ground-glass opacities seen throughout both lungs concerning for infectious process, typical of COVID 19. 06/14/21: ABG normal pH, pCO2, HCO3 and O2 at 94% on BiPAP. CXR showed diffuse opacities throughout the bilateral mid and lower lung zones consistent with COVID pneumonia. Cardiomegaly. Currently she anxious, tachypneic on 100% FiO2 BiPAP, with saturations at 92%. Called the patients son, Ish, who she wanted me to call about everything (#[phone]). At this time, the patient and son understand how critical she is this point. If she gets any worse she may need to be placed on a ventilator. After much discussion with the patient her son their agreement that she will remain a full code and be intubated if necessary. Continue on IV dexamethasone and Remdesivir (# 4) and PO Baricitinib (# to) and receivedConvolesant Plasma x1 Patient has become elevated slightly more overnight elevated LFTs, LDH, CRP due to COVID. Will continue trending. Continue with symptomatic care. P.r.n. albuterol inhaler, Robitussin, Throat lozenge Lovenox for DVT prophylaxis Continue monitoring respiratory status. (2) Acute respiratory failure with hypoxia: Code(s): J96.01 - Acute respiratory failure with hypoxia Status: Acute Assessment and Plan: See above (3) Hypertension: Code(s): I10 - Essential (primary) hypertension Status: Acute Assessment and Plan: Patient's blood pressure is stable at 112/44. Will hold hydrochlorothiazide and Lisinopril at this time. Continue to monitor (4) Elevated glucose: Code(s): R73.09 - Other abnormal glucose Status: Acute Assessment and Plan: Patient denies any history of diabetes. Her glucose on arrival was 182. Hemoglobin A1c is 7.8%, New onset DM. Will start glucose checks Q6hrs since she is on continuous BiPAP at this time and Sliding Scale Insulin. Hypglycemic protocol in place. Continue monitoring. Will need medications for new onset DM upon discharge. Subjective Date/time seen: 06/15/21 17:12 Interval history: no overnight events. Feeling better. Wants to go home. Still on high level of oxygen via Airvo. Denies any lightheadedness, dizziness, fatigue, leg swelling, chest pain, nausea vomiting, abdominal pain. Review of Systems Review of Systems: All systems reviewed & are unremarkable except as noted in HPI and below Exam Narrative: General: Comfortable. Not in acute distress on airvo Skin: No jaundice or cyanosis. Good skin turgor. Neck: Full range of motion. Supple. Respiratory: clear to auscultation, no wheezing, rales or rhonchi. No bony chest wall tenderness. Cardiovascular: The heart has a regular rate and rhythm without murmur. Lower extremities: No lower extremity edema. Distal pulses are easily palpated. No calf tenderness to palpation. Gastrointestinal: The abdomen is soft, nontender and nondistended with active bowel sounds. Psychiatric: Lucid and oriented. Memory intact. Neurologic: No focal deficits. Speech is clear. No facial drooping. Objective Data Vital Signs Vital Signs: Vital Signs - 24 hr 06/14/21 18:00
[2021-06-15 20:44] LABS: Glucose Point of Care 120 mg/dl (65-105)
[2021-06-15] MEDS: SODIUM CHLORIDE NASAL GEL 14.1 GM 1 APPLIC NASAL (21:04)
[2021-06-16] VITALS (22 sets, daily range): BP systolic 119–155; BP diastolic 62–100; PULSE 79–102; RESP 20–59; TEMP 36.6–37.4; O2SAT 90–97
--- NOTE | 2021-06-16 04:34 | PM.CCN ---
Critical Care Event Note Summary Code activated: No Narrative: A rapid response was called. The patient was found down on the floor beside her bed. She reported that she was rolling over in bed and fell out of bed. Her BiPAP subsequently came off. She was desatting into the 60s. Her O2 sats improved with being placed back on Airvo with non-rebreather. The patient had incontinent of stool during the course the fall. Patient is in no distress and denies having hit her head. She denies any current pain. Critical care time: less than 30 mins
--- NOTE | 2021-06-16 05:22 | PC.NURSE ---
patient called out at around 0430 couldn't understand patient because she was on bipap. told patient that i would be right down. grabbed my cart and her morning labs and went down to room. patient was screaming out and i heard her from a couple rooms away and ran into room. patient was on the floor rolling all around trying to get back up. told patient to keep still that we would get her up. called a rapid because patient is obese and had moderate amt of liquid stool on patient and on floor, and footies.i placed patient on airvo and non-rebreather. i was questioning patient on how she ended up on floor with her bipap off and laying beside her. patient stated that she was rolling to sit up and rolled out of the bed and onto the floor. she denied hitting her head and having any pain. patient had no skin tear or wounds from incident. patient was able to help assist a few of the nurses to get up. she was placed back in bed. patient still denies any pain but is still very sob from movement. patient was cleaned up and educated on not getting up without assistance and educated on bed alarm. yellow clasp placed on patients band. general house worker, icu charge nurse and dr jeanette verdin.
[2021-06-16 05:28] LABS: Alanine Aminotransferase 39 U/L (4-35); Estimated CRCL calculation 70 ml/min; Estimated Glomerular Filt Rate > 60
[2021-06-16] MEDS: ALBUTEROL SULFATE (*SP) AEROSOL 1 PUFF 2 PUFF INHALATION ×4 (08:05→20:41)
[2021-06-16 09:00] LABS: Glucose Point of Care 101 mg/dl (65-105)
[2021-06-16] MEDS: REMDESIVIR 100 MG/NS 250 ML 100 MG/250 ML BAG 250 MG IVPB (10:03)
[2021-06-16] MEDS: BARICITINIB 2 MG TABLET BY MOUTH (10:03)
[2021-06-16] MEDS: DEXAMETHASONE SOD PHOS INJ 4 MG/ML VIAL 6 MG IV PUSH (10:03)
[2021-06-16] MEDS: ENOXAPARIN 40 MG/0.4 ML SYRINGE SUB-Q (10:04)
--- NOTE | 2021-06-16 11:01 | PM.IMPN ---
Progress Note: A&P Assessment and Plan (1) Pneumonia due to 2019 novel coronavirus: Code(s): U07.1 - COVID-19; J12.82 - Pneumonia due to coronavirus disease 2019 Status: Acute (2) Acute respiratory failure with hypoxia: Code(s): J96.01 - Acute respiratory failure with hypoxia Status: Acute Assessment and Plan: See above (3) Hypertension: Code(s): I10 - Essential (primary) hypertension Status: Acute (4) Elevated glucose: Code(s): R73.09 - Other abnormal glucose Status: Acute Assessment and Plan: Additional Plan Patient began having symptoms on June 05, which started out as a cough and congestion. Then developed symptoms of loss of taste and smell. In the last few days she has been so fatigued and shortness of breath with exertion she decided to come into the emergency room for further evaluation. UNVACCINATED. Diagnosed with COVID 19 on arrival with positive rapid swab. Patient was found to be hypoxic by EMS and placed on oxygen. Patient had elevated D-dimer and a CTA of her chest preliminary report shows no PE, extensive ground-glass opacities seen throughout both lungs concerning for infectious process, typical of COVID 19. 06/14/21: ABG normal pH, pCO2, HCO3 and O2 at 94% on BiPAP. CXR showed diffuse opacities throughout the bilateral mid and lower lung zones consistent with COVID pneumonia. Cardiomegaly. Currently she anxious, tachypneic on 100% FiO2 BiPAP, with saturations at 92%. Called the patients son, Ish, who she wanted me to call about everything (#[phone]). At this time, the patient and son understand how critical she is this point. If she gets any worse she may need to be placed on a ventilator. After much discussion with the patient her son their agreement that she will remain a full code and be intubated if necessary. Continue on IV dexamethasone and Remdesivir (# 4) and PO Baricitinib (# to) and receivedConvolesant Plasma x1 Patient has become elevated slightly more overnight elevated LFTs, LDH, CRP due to COVID. Will continue trending. Continue with symptomatic care. P.r.n. albuterol inhaler, Robitussin, Throat lozenge Lovenox for DVT prophylaxis Continue monitoring respiratory status. Patient's blood pressure is stable at 112/44. Will hold hydrochlorothiazide and Lisinopril at this time. Continue to monitor Patient denies any history of diabetes. Her glucose on arrival was 182. Hemoglobin A1c is 7.8%, New onset DM. Will start glucose checks Q6hrs since she is on continuous BiPAP at this time and Sliding Scale Insulin. Hypglycemic protocol in place. Continue monitoring. Will need medications for new onset DM upon discharge. 06/16/21 COVID PNA on Baricitinib. spoke w pharmacist pt on BiPAP will extend tx to 14 days or dc home which ever comes first Remdesivir increase to 14 days cont dexamethasone increase to high dose regimen daily CBC ordered will add Vit C Vit D Zn patient is decompensating may need intubation. Will readdress this topic with her after we give her a trial of proning Subjective Date/time seen: 06/16/21 11:01 patient on BiPAP with increased respiratory rate, she declines transferred ICU and states that she does not want to be intubated. Mounting Inspector has come to bedside while I am present and again high as conversation with patient regarding her desire for intubation. Patient is adamant that she does not want to be intubated she wants to try to lie on her stomach and improve her breathing. I agree I will give her the opportunity to try but I will return in an hour or so and if she is still breathing at an increased rate then we will discuss again possible intubation and code status. Patient's son has called requesting information. Per patient I am to tell him that she is coming home. Exam Narrative: General: Hypoxic in respiratory distress incre
[2021-06-16 12:40] LABS: Basophils Percent Auto 0.1 % (0.2-1.2); Eosinophils Percent Auto 0.2 % (0-4.4); Hematocrit 36.3 % (37.0-47.0); Hemoglobin 11.4 g/dL (12.0-15.0); Immature Granulocyte Absolute 0.13 K/mm3 (0.00-0.031); Immature Granulocyte Percent A 0.8 % (0-0.5); Lymphocytes Absolute Auto 2.29 K/mm3 (0.9-3.2); Lymphocytes Percent Auto 14.6 % (18.3-44.2); Mean Corpuscular HGB Conc 31.4 g/dl (32-36); Mean Corpuscular Hemoglobin 24.7 pg (26-34); Mean Corpuscular Volume 78.7 fl (80-100); Mean Platelet Volume 9.5 fl (7.4-10.4); Monocytes Absolute Auto 0.5 K/mm3 (0.1-0.6); Neutrophils Absolute Auto 12.7 K/mm3 (1.3-6.7); Neutrophils Percent Auto 81.3 % (45.5-73.1); Platelet Count Result 425 k/mm3 (150-375); Red Blood Count 4.61 M/mm3 (4.2-5.4); Red Cell Distribution Width 16.2 % (11.5-14.5); White Blood Count 15.6 K/mm3 (4.5-10.0)
[2021-06-16 13:17] LABS: Anisocytosis 1+ (NORMAL); Hypochromasia 1+ (NORMAL)
[2021-06-16 13:41] LABS: Alanine Aminotransferase 32 U/L (4-35); Albumin Level 3.4 g/dL (3.5-5.1); Alkaline Phosphatase 109 U/L (38-126); Anion Gap 6 mmol/L (8-16); Aspartate Amino Transferase 78 U/L (14-36); Bilirubin,Total 0.4 mg/dL (0.2-1.3); Blood Urea Nitrogen 24 mg/dL (7-17); CRP 7.6 mg/dL (<1.0); Calcium 8.8 mg/dL (8.4-10.2); Carbon Dioxide 31 mmol/L (22-30); Chloride 101 mmol/L (98-107); Estimated CRCL calculation 76 ml/min; Estimated Glomerular Filt Rate > 60; Glucose 154 mg/dL (65-110); Potassium 3.7 mmol/L (3.4-5.0); Sodium 138 mmol/L (137-145)
[2021-06-16 13:54] LABS: Erythrocyte Sedimentation Rate 26 mm/hr (0-20)
[2021-06-16 16:49] LABS: D Dimer > 20.00 ug/mL (<0.48)
[2021-06-16 17:22] LABS: Alveolar/Arterial O2 Gradient 536.6 mmHg; Base Excess ABG 2.4 mEq/l (+/-2.0); Fractional Inspired Oxygen 90 %; HCO3 ABG 26.6 mEq/l (22.0-26.0); Modified Allen's Test Pass; Oxygen Content ABG 15.7 %vol (16.0-22.0); Oxygen Saturation ABG 93.3 % (95.0-100.0); Oxyhemoglobin 90.6 % THb (90.0-100.0); PCO2 ABG 39.8 mmHg (35.0-45.0); PO2 ABG 64.3 mmHg (80.0-100.0); PO2 FiO2 Ratio Arterial Blood 0.71 %; Site Drawn RIGHT RADIAL; Total Hemoglobin 12.3 g/dL (12.0-18.0); pH ABG 7.443 (7.350-7.450)
[2021-06-16 17:23] LABS: Device NON-INVASIVE VENT; Non-Invasive Expiratory Pressure 8 CMH2O; Non-Invasive Inspiratory Pressure 12 CMH2O; Non-Invasive Vent Rate 14 /MIN
[2021-06-16 17:33] LABS: Glucose Point of Care 123 mg/dl (65-105)
[2021-06-16 20:18] LABS: Glucose Point of Care 109 mg/dl (65-105)
[2021-06-16 20:22] LABS: Lactate Dehydrogenase 2366 U/L (313-618)
[2021-06-16] MEDS: SODIUM CHLORIDE NASAL GEL 14.1 GM 1 APPLIC NASAL (21:00)
[2021-06-17] VITALS (23 sets, daily range): BP systolic 122–148; BP diastolic 77–94; PULSE 75–109; RESP 20–55; TEMP 36.2–37.4; O2SAT 90–100
[2021-06-17 06:10] LABS: Basophils Percent Auto 0.2 % (0.2-1.2); Eosinophils Percent Auto 0.2 % (0-4.4); Hematocrit 36.9 % (37.0-47.0); Hemoglobin 11.7 g/dL (12.0-15.0); Immature Granulocyte Absolute 0.18 K/mm3 (0.00-0.031); Lymphocytes Absolute Auto 2.61 K/mm3 (0.9-3.2); Mean Corpuscular HGB Conc 31.7 g/dl (32-36); Mean Corpuscular Hemoglobin 24.9 pg (26-34); Mean Corpuscular Volume 78.5 fl (80-100); Mean Platelet Volume 9.6 fl (7.4-10.4); Monocytes Absolute Auto 0.5 K/mm3 (0.1-0.6); Monocytes Percent Auto 3.1 % (2.6-8.5); Neutrophils Percent Auto 80.5 % (45.5-73.1); Platelet Count Result 362 k/mm3 (150-375); Red Cell Distribution Width 15.8 % (11.5-14.5); White Blood Count 17.4 K/mm3 (4.5-10.0)
[2021-06-17 06:56] LABS: INR 1.2; Prothrombin Time 14.7 Seconds (11.1-14.7)
[2021-06-17 08:05] LABS: D Dimer > 20.00 ug/mL (<0.48)
[2021-06-17] MEDS: ALBUTEROL SULFATE (*SP) AEROSOL 1 PUFF 2 PUFF INHALATION ×4 (08:32→21:12)
[2021-06-17 09:03] LABS: Glucose Point of Care 82 mg/dl (65-105)
[2021-06-17] MEDS: CHOLECALCIFEROL 1,000 UNITS TABLET 1000 UNITS PO (10:09)
[2021-06-17] MEDS: ENOXAPARIN 40 MG/0.4 ML SYRINGE SUB-Q (10:09)
[2021-06-17] MEDS: BARICITINIB 2 MG TABLET BY MOUTH (10:09)
[2021-06-17 10:31] LABS: Alanine Aminotransferase 30 U/L (4-35); Albumin Level 3.4 g/dL (3.5-5.1); Alkaline Phosphatase 113 U/L (38-126); Anion Gap 3 mmol/L (8-16); Aspartate Amino Transferase 69 U/L (14-36); Bilirubin,Total 0.6 mg/dL (0.2-1.3); Blood Urea Nitrogen 22 mg/dL (7-17); CRP 17.2 mg/dL (<1.0); Calcium 9.1 mg/dL (8.4-10.2); Carbon Dioxide 34 mmol/L (22-30); Chloride 102 mmol/L (98-107); Estimated CRCL calculation 84 ml/min; Estimated Glomerular Filt Rate > 60; Glucose 144 mg/dL (65-110); Phosphorus 3.8 mg/dL (2.5-4.5); Potassium 3.9 mmol/L (3.4-5.0); Sodium 139 mmol/L (137-145)
[2021-06-17] MEDS: REMDESIVIR 100 MG/NS 250 ML 100 MG/250 ML BAG 250 MG IVPB (11:11)
[2021-06-17 12:38] LABS: Glucose Point of Care 119 mg/dl (65-105)
[2021-06-17 17:22] LABS: Glucose Point of Care 135 mg/dl (65-105)
--- NOTE | 2021-06-17 19:06 | PM.IMPN ---
Progress Note: A&P Assessment and Plan (1) Pneumonia due to 2019 novel coronavirus: Code(s): U07.1 - COVID-19; J12.82 - Pneumonia due to coronavirus disease 2019 Status: Acute (2) Acute respiratory failure with hypoxia: Code(s): J96.01 - Acute respiratory failure with hypoxia Status: Acute Assessment and Plan: See above (3) Hypertension: Code(s): I10 - Essential (primary) hypertension Status: Acute (4) Elevated glucose: Code(s): R73.09 - Other abnormal glucose Status: Acute Assessment and Plan: Additional Plan Patient began having symptoms on June 05, which started out as a cough and congestion. Then developed symptoms of loss of taste and smell. In the last few days she has been so fatigued and shortness of breath with exertion she decided to come into the emergency room for further evaluation. UNVACCINATED. Diagnosed with COVID 19 on arrival with positive rapid swab. Patient was found to be hypoxic by EMS and placed on oxygen. Patient had elevated D-dimer and a CTA of her chest preliminary report shows no PE, extensive ground-glass opacities seen throughout both lungs concerning for infectious process, typical of COVID 19. 06/14/21: ABG normal pH, pCO2, HCO3 and O2 at 94% on BiPAP. CXR showed diffuse opacities throughout the bilateral mid and lower lung zones consistent with COVID pneumonia. Cardiomegaly. Currently she anxious, tachypneic on 100% FiO2 BiPAP, with saturations at 92%. Called the patients son, Ish, who she wanted me to call about everything (#[phone]). At this time, the patient and son understand how critical she is this point. If she gets any worse she may need to be placed on a ventilator. After much discussion with the patient her son their agreement that she will remain a full code and be intubated if necessary. Continue on IV dexamethasone and Remdesivir (# 4) and PO Baricitinib (# to) and receivedConvolesant Plasma x1 Patient has become elevated slightly more overnight elevated LFTs, LDH, CRP due to COVID. Will continue trending. Continue with symptomatic care. P.r.n. albuterol inhaler, Robitussin, Throat lozenge Lovenox for DVT prophylaxis Continue monitoring respiratory status. Patient's blood pressure is stable at 112/44. Will hold hydrochlorothiazide and Lisinopril at this time. Continue to monitor Patient denies any history of diabetes. Her glucose on arrival was 182. Hemoglobin A1c is 7.8%, New onset DM. Will start glucose checks Q6hrs since she is on continuous BiPAP at this time and Sliding Scale Insulin. Hypglycemic protocol in place. Continue monitoring. Will need medications for new onset DM upon discharge. 06/16/21 COVID PNA on Baricitinib. spoke w pharmacist pt on BiPAP will extend tx to 14 days or dc home which ever comes first Remdesivir increase to 14 days cont dexamethasone increase to high dose regimen daily CBC ordered will add Vit C Vit D Zn patient is decompensating may need intubation. Will readdress this topic with her after we give her a trial of proning 06/17/2021 Patient given some sips of water and immediately decided to the 50s once BiPAP was removed. She is placed back on BiPAP and back into prone position with good recovery back into the mid 90s. Case reviewed extensively with RN at bedside. Continue dexamethasone remdesivir and baricitinab Continue BiPAP Continue pronating A.m. labs with chest x-ray and ABG High risk for ongoing decompensation Subjective Date/time seen: 06/17/21 19:06 Patient able to maintain oxygen saturation and slower respiratory rate overnight while lying in the prone position on BiPAP. She desats with minimal movement rolling in the better sitting up. RN requested to leave patient in the prone position for as long as she is able to tolerate it. Nutrition will have to be drinking insurance till resp
[2021-06-17 22:41] LABS: Glucose Point of Care 132 mg/dl (65-105)
[2021-06-18] VITALS (24 sets, daily range): BP systolic 110–156; BP diastolic 52–100; PULSE 92–120; RESP 30–58; TEMP 36.3–37.3; O2SAT 88–99
[2021-06-18 04:34] LABS: Alveolar/Arterial O2 Gradient 550.5 mmHg; Base Excess ABG 2.7 mEq/l (+/-2.0); Fractional Inspired Oxygen 90 %; HCO3 ABG 26.9 mEq/l (22.0-26.0); Oxygen Content ABG 15.5 %vol (16.0-22.0); Oxygen Saturation ABG 87.2 % (95.0-100.0); Oxyhemoglobin 84.4 % THb (90.0-100.0); PCO2 ABG 39.9 mmHg (35.0-45.0); PO2 ABG 50.3 mmHg (80.0-100.0); PO2 FiO2 Ratio Arterial Blood 0.56 %; Total Hemoglobin 13.1 g/dL (12.0-18.0); pH ABG 7.447 (7.350-7.450)
[2021-06-18 04:35] LABS: Device BIPAP; Modified Allen's Test Pass; Site Drawn RIGHT RADIAL
[2021-06-18 04:36] LABS: Expiratory Pressure 8 cmH2O; Inspiratory Pressure 12 cmH2O
[2021-06-18 05:12] LABS: Basophils Absolute Auto 0.1 K/mm3 (0.0-0.1); Basophils Percent Auto 0.2 % (0.2-1.2); Hematocrit 36.5 % (37.0-47.0); Hemoglobin 11.6 g/dL (12.0-15.0); Immature Granulocyte Absolute 0.52 K/mm3 (0.00-0.031); Lymphocytes Absolute Auto 2.45 K/mm3 (0.9-3.2); Lymphocytes Percent Auto 9.5 % (18.3-44.2); Mean Corpuscular HGB Conc 31.8 g/dl (32-36); Mean Corpuscular Hemoglobin 24.7 pg (26-34); Mean Corpuscular Volume 77.8 fl (80-100); Mean Platelet Volume 9.8 fl (7.4-10.4); Monocytes Absolute Auto 0.6 K/mm3 (0.1-0.6); Monocytes Percent Auto 2.2 % (2.6-8.5); Neutrophils Absolute Auto 22.3 K/mm3 (1.3-6.7); Neutrophils Percent Auto 86.1 % (45.5-73.1); Platelet Count Result 301 k/mm3 (150-375); Red Blood Count 4.69 M/mm3 (4.2-5.4); Red Cell Distribution Width 15.8 % (11.5-14.5); White Blood Count 25.9 K/mm3 (4.5-10.0)
[2021-06-18 05:23] LABS: INR 1.3
[2021-06-18 05:33] LABS: Alanine Aminotransferase 27 U/L (4-35); Albumin Level 3.3 g/dL (3.5-5.1); Alkaline Phosphatase 115 U/L (38-126); Anion Gap 5 mmol/L (8-16); Aspartate Amino Transferase 67 U/L (14-36); Bilirubin,Total 0.6 mg/dL (0.2-1.3); Blood Urea Nitrogen 18 mg/dL (7-17); Calcium 9.1 mg/dL (8.4-10.2); Carbon Dioxide 32 mmol/L (22-30); Chloride 101 mmol/L (98-107); Estimated CRCL calculation 84 ml/min; Estimated Glomerular Filt Rate > 60; Glucose 113 mg/dL (65-110); Sodium 138 mmol/L (137-145)
[2021-06-18 06:22] LABS: CRP 32.6 mg/dL (<1.0)
[2021-06-18] MEDS: REMDESIVIR 100 MG/NS 250 ML 100 MG/250 ML BAG 250 MG IVPB (09:32)
[2021-06-18] MEDS: HEPARIN SODIUM 5,000 UNITS/ML VIAL 6500 UNITS IV PUSH ×2 (09:57→18:04)
[2021-06-18] MEDS: HEPARIN SOD/D5W 100 UNITS/ML 25,000 UNITS/250 ML BAG 15 UNITS IV CONT (10:01)
--- NOTE | 2021-06-18 10:13 | PCRCNOTE ---
Tx not given. Pt on cont. Bipap. Pt cannot tolerate coming off bipap
[2021-06-18 10:19] LABS: Glucose Point of Care 94 mg/dl (65-105)
--- NOTE | 2021-06-18 10:51 | PC.NURSE ---
Spoke with patient this morning. Patient is alert and oriented to all of my questions, person, place, year, president, month. Patient told me she does not want to be intubated and I explained to her that her oxygen needs were increasing. Patient was very adamant and again stated she did not want to be intubated. We discussed her code status and she told me she wants to be a DNR. I called Dr Sanchez informed her about patients wishes. Dr. Sanchez came to see the patient and discussed code status with patient.
--- NOTE | 2021-06-18 11:05 | PM.IMPN ---
Progress Note: A&P Assessment and Plan (1) Pneumonia due to 2019 novel coronavirus: Code(s): U07.1 - COVID-19; J12.82 - Pneumonia due to coronavirus disease 2019 Status: Acute (2) Acute respiratory failure with hypoxia: Code(s): J96.01 - Acute respiratory failure with hypoxia Status: Acute Assessment and Plan: See above (3) Hypertension: Code(s): I10 - Essential (primary) hypertension Status: Acute (4) Diabetes: Code(s): E11.9 - Type 2 diabetes mellitus without complications Status: Acute (5) Morbid obesity with BMI of 45.0-49.9, adult: Code(s): E66.01 - Morbid (severe) obesity due to excess calories; Z68.42 - Body mass index [BMI] 45.0-49.9, adult Status: Acute (6) COVID-19: Code(s): U07.1 - COVID-19 Status: Acute Additional Plan Patient began having symptoms on June 05, which started out as a cough and congestion. Then developed symptoms of loss of taste and smell. In the last few days she has been so fatigued and shortness of breath with exertion she decided to come into the emergency room for further evaluation. UNVACCINATED. Diagnosed with COVID 19 on arrival with positive rapid swab. Patient was found to be hypoxic by EMS and placed on oxygen. Patient had elevated D-dimer and a CTA of her chest preliminary report shows no PE, extensive ground-glass opacities seen throughout both lungs concerning for infectious process, typical of COVID 19. 06/14/21: ABG normal pH, pCO2, HCO3 and O2 at 94% on BiPAP. CXR showed diffuse opacities throughout the bilateral mid and lower lung zones consistent with COVID pneumonia. Cardiomegaly. Currently she anxious, tachypneic on 100% FiO2 BiPAP, with saturations at 92%. Called the patients son, Ish, who she wanted me to call about everything (#[phone]). At this time, the patient and son understand how critical she is this point. If she gets any worse she may need to be placed on a ventilator. After much discussion with the patient her son their agreement that she will remain a full code and be intubated if necessary. Continue on IV dexamethasone and Remdesivir (# 4) and PO Baricitinib (# to) and receivedConvolesant Plasma x1 Patient has become elevated slightly more overnight elevated LFTs, LDH, CRP due to COVID. Will continue trending. Continue with symptomatic care. P.r.n. albuterol inhaler, Robitussin, Throat lozenge Lovenox for DVT prophylaxis Continue monitoring respiratory status. Patient's blood pressure is stable at 112/44. Will hold hydrochlorothiazide and Lisinopril at this time. Continue to monitor Patient denies any history of diabetes. Her glucose on arrival was 182. Hemoglobin A1c is 7.8%, New onset DM. Will start glucose checks Q6hrs since she is on continuous BiPAP at this time and Sliding Scale Insulin. Hypglycemic protocol in place. Continue monitoring. Will need medications for new onset DM upon discharge. 06/16/21 COVID PNA on Baricitinib. spoke w pharmacist pt on BiPAP will extend tx to 14 days or dc home which ever comes first Remdesivir increase to 14 days cont dexamethasone increase to high dose regimen daily CBC ordered will add Vit C Vit D Zn patient is decompensating may need intubation. Will readdress this topic with her after we give her a trial of proning 06/17/2021 Patient given some sips of water and immediately decided to the 50s once BiPAP was removed. She is placed back on BiPAP and back into prone position with good recovery back into the mid 90s. Case reviewed extensively with RN at bedside. Continue dexamethasone remdesivir and baricitinab Continue BiPAP Continue pronating A.m. labs with chest x-ray and ABG High risk for ongoing decompensation 06/18/21 DNR dimitrios staus cont insulin cont remdesivir, dexamethasone, baricitnab start heparin gtt cont proning cont bipap prognosis guarded family updated that pt's condition has continue
--- NOTE | 2021-06-18 12:05 | PC.NURSE ---
I have tried to give patient PO medication on multiple occasions and she refused. I asked her why and she stated she cant breath long enough to swallow pills. She said she tried before and choked. I asked her if she could try again and she refused.
[2021-06-18 13:35] LABS: Glucose Point of Care 124 mg/dl (65-105)
[2021-06-18] MEDS: METOPROLOL TARTRATE INJ 5 MG/5 ML VIAL 2.5 MG IV PUSH ×2 (15:58→18:20)
[2021-06-18 17:00] LABS: Partial Thromboplastin Time 45.9 SECONDS (22.3-36.8)
[2021-06-18 18:06] LABS: INR 1.3; Prothrombin Time 15.5 Seconds (11.1-14.7)
[2021-06-18] MEDS: LACTATED RINGERS 1,000 ML 75 ML IV CONT (18:13)
[2021-06-18 18:57] LABS: Glucose Point of Care 126 mg/dl (65-105)
[2021-06-18 23:25] LABS: Glucose Point of Care 125 mg/dl (65-105)
[2021-06-19] VITALS (14 sets, daily range): BP systolic 134–146; BP diastolic 49–99; PULSE 104–142; RESP 45–60; TEMP 36.3–37.6; O2SAT 80–98
[2021-06-19 01:01] LABS: Partial Thromboplastin Time 44.2 SECONDS (22.3-36.8)
[2021-06-19] MEDS: HEPARIN SOD/D5W 100 UNITS/ML 25,000 UNITS/250 ML BAG 18 UNITS IV CONT (01:35)
[2021-06-19] MEDS: HEPARIN SODIUM 5,000 UNITS/ML VIAL 6500 UNITS IV PUSH (01:41)
[2021-06-19 09:26] LABS: Basophils Absolute Auto 0.1 K/mm3 (0.0-0.1); Basophils Percent Auto 0.3 % (0.2-1.2); Hematocrit 37.5 % (37.0-47.0); Hemoglobin 12.1 g/dL (12.0-15.0); Immature Granulocyte Absolute 1.37 K/mm3 (0.00-0.031); Immature Granulocyte Percent A 3.7 % (0-0.5); Lymphocytes Percent Auto 7.7 % (18.3-44.2); Mean Corpuscular HGB Conc 32.3 g/dl (32-36); Mean Corpuscular Volume 77.5 fl (80-100); Mean Platelet Volume 9.8 fl (7.4-10.4); Monocytes Absolute Auto 0.6 K/mm3 (0.1-0.6); Monocytes Percent Auto 1.5 % (2.6-8.5); Neutrophils Absolute Auto 32.5 K/mm3 (1.3-6.7); Neutrophils Percent Auto 86.8 % (45.5-73.1); Nucleated Red Blood Cells Perc 0.1 % (0.0-0.2); Platelet Count Result 397 k/mm3 (150-375); Red Blood Count 4.84 M/mm3 (4.2-5.4); Red Cell Distribution Width 15.9 % (11.5-14.5); White Blood Count 37.4 K/mm3 (4.5-10.0)
[2021-06-19] MEDS: METOPROLOL TARTRATE INJ 5 MG/5 ML VIAL 2.5 MG IV PUSH ×3 (09:36→15:36)
[2021-06-19 09:45] LABS: Alanine Aminotransferase 26 U/L (4-35); Estimated CRCL calculation 70 ml/min; Estimated Glomerular Filt Rate > 60
[2021-06-19 09:46] LABS: INR 1.3; Prothrombin Time 15.6 Seconds (11.1-14.7); Prothrombin Time 16.4 Seconds (11.1-14.7)
[2021-06-19 09:47] LABS: Partial Thromboplastin Time 50.6 SECONDS (22.3-36.8)
[2021-06-19 10:16] LABS: Alanine Aminotransferase 24 U/L (4-35); Albumin Level 3.1 g/dL (3.5-5.1); Alkaline Phosphatase 144 U/L (38-126); Anion Gap 13 mmol/L (8-16); Aspartate Amino Transferase 69 U/L (14-36); Bilirubin,Total 0.7 mg/dL (0.2-1.3); Blood Urea Nitrogen 21 mg/dL (7-17); Calcium 9.2 mg/dL (8.4-10.2); Carbon Dioxide 30 mmol/L (22-30); Chloride 103 mmol/L (98-107); Estimated CRCL calculation 76 ml/min; Estimated Glomerular Filt Rate > 60; Glucose 122 mg/dL (65-110); Potassium 4.7 mmol/L (3.4-5.0); Sodium 146 mmol/L (137-145)
[2021-06-19 10:20] LABS: D Dimer > 20.00 ug/mL (<0.48)
--- NOTE | 2021-06-19 12:31 | P.PNIM_ITS ---
Progress Note: A&P Assessment and Plan (1) Pneumonia due to 2019 novel coronavirus: Code(s): U07.1 - COVID-19; J12.82 - Pneumonia due to coronavirus disease 2019 Status: Acute (2) Acute respiratory failure with hypoxia: Code(s): J96.01 - Acute respiratory failure with hypoxia Status: Acute Assessment and Plan: See above (3) Hypertension: Code(s): I10 - Essential (primary) hypertension Status: Acute (4) Diabetes: Code(s): E11.9 - Type 2 diabetes mellitus without complications Status: Acute (5) Morbid obesity with BMI of 45.0-49.9, adult: Code(s): E66.01 - Morbid (severe) obesity due to excess calories; Z68.42 - Body mass index [BMI] 45.0-49.9, adult Status: Acute (6) COVID-19: Code(s): U07.1 - COVID-19 Status: Acute Additional Plan Patient began having symptoms on June 05, which started out as a cough and congestion. Then developed symptoms of loss of taste and smell. In the last few days she has been so fatigued and shortness of breath with exertion she decided to come into the emergency room for further evaluation. UNVACCINATED. Diagnosed with COVID 19 on arrival with positive rapid swab. * Patient was found to be hypoxic by EMS and placed on oxygen. * Patient had elevated D-dimer and a CTA of her chest preliminary report shows no PE, extensive ground-glass opacities seen throughout both lungs concerning for infectious process, typical of COVID 19. * * 06/14/21: ABG normal pH, pCO2, HCO3 and O2 at 94% on BiPAP. CXR showed diffuse opacities throughout the bilateral mid and lower lung zones consistent with COVID pneumonia. Cardiomegaly. * Currently she anxious, tachypneic on 100% FiO2 BiPAP, with saturations at 92%. Called the patients son, Ish, who she wanted me to call about everything (#[phone]). At this time, the patient and son understand how critical she is this point. If she gets any worse she may need to be placed on a ventilator. After much discussion with the patient her son their agreement that she will remain a full code and be intubated if necessary. * Continue on IV dexamethasone and Remdesivir (# 4) and PO Baricitinib (# to) and receivedConvolesant Plasma x1 * Patient has become elevated slightly more overnight elevated LFTs, LDH, CRP due to COVID. Will continue trending. * Continue with symptomatic care. P.r.n. albuterol inhaler, Robitussin, Throat lozenge * Lovenox for DVT prophylaxis Continue monitoring respiratory status. Patient's blood pressure is stable at 112/44. Will hold hydrochlorothiazide and Lisinopril at this time. Continue to monitor Patient denies any history of diabetes. Her glucose on arrival was 182. * Hemoglobin A1c is 7.8%, New onset DM. * Will start glucose checks Q6hrs since she is on continuous BiPAP at this time and Sliding Scale Insulin. Hypglycemic protocol in place. Continue monitoring. Will need medications for new onset DM upon discharge. 06/16/21 COVID PNA on Baricitinib. spoke w pharmacist pt on BiPAP will extend tx to 14 days or dc home which ever comes first Remdesivir increase to 14 days cont dexamethasone increase to high dose regimen daily CBC ordered will add Vit C Vit D Zn patient is decompensating may need intubation. Will readdress this topic with her after we give her a trial of proning 06/17/2021 Patient given some sips of water and immediately decided to the 50s once BiPAP was removed. She is placed back on BiPAP and back into prone position with good recovery back into the mid 90s. Case reviewed extensively with RN at bed
[2021-06-19] MEDS: LACTATED RINGERS 1,000 ML 75 ML IV CONT (13:11)
[2021-06-19] MEDS: MORPHINE SULFATE (*CRX) 2 MG/ML INJ 1 MG IV PUSH (13:12)
[2021-06-19] MEDS: ENOXAPARIN 80 MG/0.8 ML SYRINGE 65 MG SUB-Q (13:12)
[2021-06-19] MEDS: REMDESIVIR 100 MG/NS 250 ML 100 MG/250 ML BAG 250 MG IVPB (13:12)
[2021-06-19 13:47] LABS: Glucose Point of Care 117 mg/dl (65-105)
[2021-06-19] MEDS: MORPHINE SULFATE (*CRX) 2 MG/ML INJ IV PUSH (14:59)
--- NOTE | 2021-06-19 16:08 | PM.DS ---
DS: Admitting Diagnosis Discharge Date 06/19/21 Admitting Diagnosis (1) Pneumonia due to 2019 novel coronavirus: Code(s): U07.1 - COVID-19; J12.82 - Pneumonia due to coronavirus disease 2019 Status: Acute Assessment and Plan: started on remdesivir and Decadron At the Zithromax and Rocephin for bacterial coverage (2) Acute respiratory failure with hypoxia: Code(s): J96.01 - Acute respiratory failure with hypoxia Status: Acute Assessment and Plan: On supplemental oxygen Breathing treatments Incentive spirometry (3) Morbid obesity with BMI of 45.0-49.9, adult: Code(s): E66.01 - Morbid (severe) obesity due to excess calories; Z68.42 - Body mass index [BMI] 45.0-49.9, adult Status: Acute Assessment and Plan: Lifestyle and diet modification 1800 calorie consistent diet (4) Hypertension: Code(s): I10 - Essential (primary) hypertension Status: Acute Assessment and Plan: Continue hydrochlorothiazide Continue lisinopril Continue to monitor DS: Discharge Diagnosis Discharge Diagnosis (1) Diabetes: Code(s): E11.9 - Type 2 diabetes mellitus without complications Status: Acute (2) Hypertension: Code(s): I10 - Essential (primary) hypertension Status: Acute (3) Morbid obesity with BMI of 45.0-49.9, adult: Code(s): E66.01 - Morbid (severe) obesity due to excess calories; Z68.42 - Body mass index [BMI] 45.0-49.9, adult Status: Acute (4) Pneumonia due to 2019 novel coronavirus: Code(s): U07.1 - COVID-19; J12.82 - Pneumonia due to coronavirus disease 2019 Status: Acute (5) Acute respiratory failure with hypoxia: Code(s): J96.01 - Acute respiratory failure with hypoxia Status: Acute (6) COVID-19: Code(s): U07.1 - COVID-19 Status: Acute DS: Summary Hospital Course Reason for hospitalization: SOB Hospital Course: 50-year-old female with obesity, hypertension, admitted to [facility] with shortness of breath. Patient had been diagnosed with COVID-19 in the outpatient setting approximately 1 week prior to presenting to our hospital. She reported ongoing worsening shortness of breath, productive cough, generalized malaise, muscle aches, fever, pain, chills, rigors, poor appetite, and generalized weakness. Patient was admitted to step-down unit and started on remdesivir, dexamethasone, Baricitinib, and supplemental oxygen. Further workup revealed she had undiagnosed DM. ISS was ordered. Home meds were continued. Despite maximal medical therapy patient continued to decline requiring use of continuous BiPAP. At 3:52 p.m. patient . Patient was DNR/ DNI. Her sister Joi Trent was notified of her passing and my condolences for her loss given. Time Spent with Patient Time attestation: Total time spent providing and/or coordinating discharge services: DS: Data Data Completed and Pending Labs on day of discharge: Labs from last 24 hours 06/19/21 06/19/21 06/19/21 13:43 09:05 09:05 WBC RBC Hgb Hct MCV MCH MCHC RDW Plt Count MPV Immature Gran % (Auto) Neut % (Auto) Lymph % (Auto) Brown % (Auto) Eos % (Auto) Baso % (Auto) Lymph # (Auto) Brown # (Auto) Eos # (Auto) Baso # (Auto) Abs Immat Gran (auto) Absolute Neuts (auto) Absolute Nucleated RBC Nucleated RBC % PT 15.6 H INR 1.3 APTT D-Dimer Sodium Potassium Chloride Carbon Dioxide Anion Gap BUN Creatinine 1.10 H Estim Creat Clear Calc 70 Estimated GFR > 60 Glucose POC Capillary Glucose 117 H Calcium Total Bilirubin AST ALT 26 Alkaline Phosphatase C-Reactive Protein Total Protein Albumin 06/19/21 06/19/21 06/19/21 09:05 09:05 09:05 WBC 37.4 H RBC 4.84 Hgb 12.1 Hct 37.5 MCV 77.5 L MCH 25.0 L MCHC 32.3 RDW 15.9 H Plt Count 397 H MPV
--- NOTE | 2021-06-19 16:19 | PM.DDS ---
Discharge Summary Date and Time Date of : 06/19/21 Time of : 15:54 Provider Pronounced By: Ryder May Probable Cause of Probable Cause of : Cardiopulmonary arrest secondary to COVID -19 PNA Summary Hospital Course: 50-year-old female with obesity, hypertension, admitted to [facility] with shortness of breath. Patient had been diagnosed with COVID-19 in the outpatient setting approximately 1 week prior to presenting to our hospital. She reported ongoing worsening shortness of breath, productive cough, generalized malaise, muscle aches, fever, pain, chills, rigors, poor appetite, and generalized weakness. Patient was admitted to step-down unit and started on remdesivir, dexamethasone, Baricitinib, and supplemental oxygen. Further workup revealed she had undiagnosed DM. ISS was ordered. Home meds were continued. Despite maximal medical therapy patient continued to decline requiring use of continuous BiPAP. At 3:52 p.m. patient . Patient was DNR/ DNI. Her sister Joi Trent was notified of her passing and my condolences for her loss given. Additional Data Confirmation of as documented by pronouncing clinician: Pupillary Reflex, Palpable Pulses, Response to Stimuli, Heart Tones and Breath Sounds Family: contacted Name of Provider Notified: Dr. Sanchez Time Provider Notified: 15:55 Provider Requests Autopsy: No Family Requests Autopsy: No Therapeutic Strategy Lead Notified: Yes Date [facility] Notified of : 06/19/21 Time [facility] Notified of : 15:54 Hospice patient?: No
== END 2021-06-19 15:54 | disposition expired | DRG 137 ==
LOC: ANHED 19:53 → ANH3MEDSUR 23:08 → ANHIMU 06-15 09:11 → ANH3MEDSUR 06-21 14:27 → ANHICU 06-21 14:27 → ANHIMU 06-21 14:27
PROVIDERS: Emergency Medicine; Physician Assistant; Admitting Provider Internal Medicine; Emergency Provider Emergency Medicine; Visit Provider Hospitalist
DX: U07.1 COVID-19 (principal); J12.82 Pneumonia due to coronavirus disease 2019; J96.01 Acute respiratory failure with hypoxia; I46.8 Cardiac arrest due to other underlying condition; I10 Essential (primary) hypertension; E66.01 Morbid (severe) obesity due to excess calories; Z68.42 Body mass index [BMI] 45.0-49.9, adult; E11.9 Type 2 diabetes mellitus without complications; W06.XXXA Fall from bed, initial encounter; Z66 Do not resuscitate
CPT/HCPCS: 36415; 36430; 36569; 36600; 71045; 71275; 80048; 80053; 80076; 82375; 82565; 82728; 82805; 82948; 83036; 83050; 83605; 83615; 83735; 83880; 84100; 84460; 85025; 85380; 85610; 85652; 85730; 86140; 86900; 86901; 87040; 87426; 93005; 94002; 94003; 94640; 94660; 96361; 96365; 96366; 96372; 96374; 96375; 96376; 99291; A9270; C1751; C9803; G0378; G0379; J0456; J0696; J1100; J1644; J1650; J1940; J2270; J7030; J7050; J7060; J7120; P9059; Q9967